=== PATIENT | male | born 1975 | race Caucasian/White ===

== ENCOUNTER 2020-07-28 17:04 | Emergency (ER) | payer BC, SELFPAY ==
[2020-07-28 17:25] VITALS: BP 113/68; PULSE 73; RESP 16; TEMP 36.7; O2SAT 99
--- NOTE | 2020-07-28 17:50 | DI.RAD_ITS ---
EXAM: XR PORTABLE CHEST AP CLINICAL HISTORY: cough, + Covid TECHNIQUE: 2D digital imaging was performed. COMPARISON: No exams were available for comparison FINDINGS: LUNGS: There is a question of faint peripheral densities bilaterally. No focal consolidation is seen .. No pleural abnormality seen. HEART: Normal. MEDIASTINUM: Normal. BONES: Scoliosis. IMPRESSION: Question of minimal bilateral peripheral infiltrates. DATA REPOSITORY: RADIATION DOSE DELIVERED:
--- NOTE | 2020-07-28 17:55 | ED.GENADUL_ITS ---
Discharge Plan Disposition Patient Disposition: HOME Condition: Stable Discharge Details Chief Complaint: RespSymp Clinical Impression: COVID-19 Primary Care Provider: Luisa,Local ED Provider: Mehran Bush Home Meds and New Rx's Prescriptions: No Action No Known Home Meds RF: 0 Discharge Instructions Instructions: Viral Syndrome (ED) Additional Instructions: Home to rest. Continue small, frequent sips of fluids so that she maintain good hydration. Tylenol and/or ibuprofen as needed for aches, pains, fever. May continue to monitor your home oxygen once daily. Please position the device on the middle or ring finger. Extremity should be warmed prior to measurements and allow 30 to 60 seconds to identify acceptable values. Return to the ER if you develop shortness of breath, oxygen below 91%, or any other acute concerns. Medical Decision Making 45-year-old male presents from home on referral from telehealth visit. He has had a Covid test that was positive on July 17 in association with a dry cough and mild malaise. No shortness of breath, no change to taste or smell. Has had no other concerning symptoms on review of systems. 99% sat on room air, he is afebrile and well-appearing, exam is reassuring. X-ray with predominantly clear lungs, questionable faint peripheral alveolar densities. See formal report. Patient instructed on use of home oxygen meter. He is stable for outpatient management at this time. No further work-up indicated. HPI General Mode of arrival: ambulatory . Date/Time Provider Initiated Documentation: 07/28/20 17:17 . Limitations to Documentation: no limitations . Information obtained by: patient . History of Present Illness 45 year old M presents to the emergency department with the chief complaint of Cough, positive Covid test on July 17, described as moderate, Quality is described as dull, and is localized to the chest. Patient reports no radiation. Patient started experiencing this day(s) and it has been intermittent. No relieving factors improve symptom(s), No exacerbating factors reported . Patient notes cough; denies fever/chills and shortness of breath. Patient did receive the following treatments prior to arrival, none Related Data Home Medications Medication Instructions Recorded Confirmed Unknown [No Known Home Meds] 07/28/20 07/28/20 Allergies Allergy/AdvReac Type Severity Reaction Status Date / Time No Known Allergies Allergy Unverified 07/28/20 17:24 General Stated Complaint: RespSymp FAITH: 3 Review of Systems Narrative: 6 systems reviewed and otherwise negative. [facility] Social History Smoking/Tobacco Use Status: Never Smoking risk assessment performed?: Yes Alcohol Intake: current Alcohol Intake frequency: holidays/special occasions only Drug use: Never Do you feel safe at home: Yes Do you feel safe in your relationship?: Yes Exam Narrative Exam Narrative: GEN: awake, alert, oriented 3. Pleasant, well groomed, interactive. HEAD: Normocephalic, atraumatic ENT: Mucous membranes moist, oropharynx unremarkable, External ear exam unremarkable EYES: PERRL, EOMI NECK: Full ROM, no DANIELLE, no menigismus CHEST/RESP: Nontender, clear to auscultation bilateral, no wheeze/rhonchi/rales CARDIOVASCULAR: RRR, no murmur, rub alexy. 2+ Rad pulse bilateral ABDOMEN: Soft, nontender, no mass. +Bowel sounds EXT: Full ROM, no edema, no rash Neuro: Grossly normal neurologic exam, conversant, interactive. Psych: Speech fluent, thoughts congruent, affect normal Course Vital Signs Vital signs: Vital Signs Temperature 36.7 C 07/28/20 17:25 Pulse 73 07/28/20 17:25 Respiratory Rate 16 07/28/20 17:25 Blood Pressure 113/68 07/28/20 17:25 Pulse Oximetry 99 07/28/20 17:25 Temperature 36.7 C 07/28/20 17:25 Temperature Source Temporal Artery Scan 07/28/20 17:25 Pulse 73 07/28/20 17:25 Respiratory Rate 16 07/28/20 17:25 Respiratory Effort Non-Labored 07/28/20 17:29 Blood Pressure 113/68 07/28/20 17:25 Blood Pressure Position Sitting 07/28/20 17:25 Pulse Oximetry 99 07/28/20 17:25 Oxygen Delivery Method Room Air 07/28/20 17:25 Oxygen Flow Rate 0 07/28/20 17:25 Pain Level 0 07/28/20 17:25
--- NOTE | 2020-07-28 18:07 | DI.VRAD_ITS ---
PROCEDURE INFORMATION: Exam: XR Chest Exam date and time: 07/28/2020 5:33 PM Age: 45 years old Clinical indication: Cough; Patient HX: Covid + TECHNIQUE: Imaging protocol: XR of the chest. Views: 1 view. Total images: 1 COMPARISON: No relevant prior studies available. FINDINGS: Lungs: Normal pulmonary expansion. Pulmonary vasculature grossly normal. Questionable faint peripheral alveolar density in the peripheral mid lung distributions, cannot exclude faint peripheral ground-glass infiltrate. Pleural spaces: No pleural effusion. No pneumothorax. Heart/Mediastinum: Heart size normal. No tracheal/mediastinal shift. Bones/joints: Mild rightward convexity thoracic scoliosis. No acute osseous abnormalities are identified. IMPRESSION: Questionable faint peripheral alveolar densities in the mid lung distributions, cannot exclude mild peripheral pneumonia. Dictated and Authenticated by: Jakob Zambrano MD. Ordering:NICOLA Laurent MD
== END 2020-07-28 18:30 | disposition home or self-care (01) ==
PROVIDERS: Emergency Provider Emergency Medicine
DX: U07.1 COVID-19 (principal); R53.83 Other fatigue
CPT/HCPCS: 99283; 71045